=== PATIENT | male | born 2000 | race Caucasian/White ===

== ENCOUNTER 2018-08-10 17:55 | Emergency (ER) | payer SELFPAY ==
[2018-08-10 18:55] LABS: #Eosinphils 0.1 thou/uL (0.0-0.7); #Lymphocytes 2.2 thou/uL (1.20-3.40); #Monocytes 0.7 thou/uL (0.11-0.59); #Neutrophils 5.3 thou/uL (1.40-6.50); %Basophils 0.4 % (0.0-1.0); %Eosinophils 0.7 % (0.0-10.0); %Lymphocytes 26.4 % (28.0-48.0); %Monocytes 8.5 % (0.0-4.0); Hemoglobin 16.9 g/dL (14.0-18.0); Mean Corpuscular HGB CONC 32.8 g/dL (32.0-36.0); Mean Corpuscular Volume 88.4 fL (78.0-98.0); Mean Platelet Volume 7.3 fL (7.4-10.4); Platelet Count 253 thou/uL (130-400); RBC Distribution Width 11.7 % (11.5-14.5); Red Blood Cell (RBC) Count 5.84 mill/uL (4.00-5.20); White Blood Cell (WBC) Count 8.3 thou/uL (4.8-10.8)
[2018-08-10 19:22] LABS: ALT (SGPT) 27 U/L (8-55); AST (SGOT) 22 U/L (5-34); Albumin 4.7 g/dL (3.5-5.0); Alkaline Phosphatase 71 U/L (Less than 750); Anion Gap 11 mmol/L (10-20); BUN (Urea Nitrogen) 13 mg/dL (8.9-20.6); Bilirubin, Total 0.5 mg/dL (0.2-1.2); CK (CPK) 217 U/L (30-200); Calc. Creatinine Clearance 0 mL/min (70-130); Calcium 10.2 mg/dL (7.8-10.44); Carbon Dioxide 25 mmol/L (22-29); Chloride 106 mmol/L (98-107); Estimated GFR-MDRD 69; Globulin 2.9 g/dL (2.4-3.5); Glucose 97 mg/dL (70-105); Potassium 3.7 mmol/L (3.5-5.1); Protein, Total 7.6 g/dL (6.0-8.3); Sodium 138 mmol/L (136-145)
--- NOTE | 2018-08-12 17:05 | EKG ---
Test Reason : Blood Pressure : / mmHG Vent. Rate : 080 BPM Atrial Rate : 080 BPM P-R Int : 144 ms QRS Dur : 104 ms QT Int : 370 ms P-R-T Axes : 060 061 029 degrees QTc Int : 426 ms Normal sinus rhythm Normal ECG Confirmed by KAELA GOINS [id number]), department editor KARYN FRIAS ([id number] on 08/12/2018 5:04:30 PM Referred By: Confirmed By:KAELA GOINS
== END 2018-08-10 20:03 | disposition home or self-care (01) ==
LOC: ERS 17:55
DX: R55 Syncope and collapse (principal)
CPT/HCPCS: 36415; 80053; 82550; 85025; 93005; 96360